=== PATIENT | female | born 1990 | race Caucasian/White ===

== ENCOUNTER 2017-01-11 06:56 | Emergency (ER) | payer MEDICAID ==
[~2017-01-11] VITALS: Ht 162.6 cm; Wt 107.5 kg
[2017-01-11 07:02] VITALS: BP 131/88
[2017-01-11] MEDS ORDERED: ACETAMINOPHEN 325 MG TABLET ONE (07:20)
[2017-01-11] MEDS ORDERED: ONDANSETRON 2MG/ML, 2ML ONE (07:20)
[2017-01-11] MEDS ORDERED: ONDANSETRON 2MG/ML, 2ML IVPush ONE (07:30)
[2017-01-11] MEDS ORDERED: ACETAMINOPHEN 325 MG TABLET PO ONE (07:30)
[2017-01-11] MEDS ORDERED: SODIUM CHLORIDE 0.9% 1,000ML IVBOLUS ONE (07:30)
[2017-01-11] MEDS ORDERED: SODIUM CHLORIDE FLUSH 10ML SYR IVF ONE (07:30)
[2017-01-11 07:33] LABS: HEMOGLOBIN 12.2 g/dL (11.7-16.4)
[2017-01-11 07:46] LABS: ASPARTATE AMINO TRANSFERASE 10 U/L (15-37); BLOOD UREA NITROGEN 6 mg/dL (7-18)
[2017-01-11] MEDS ORDERED: HYDROmorphone 1 MG/ML, 1ML IV ONE (09:30)
[2017-01-11] MEDS ORDERED: HYDROmorphone 1 MG/ML, 1ML ONE (09:40)
== END 2017-01-11 10:26 | disposition home or self-care (01) ==
LOC: ED 07:20
DX: O26.892 Other specified pregnancy related conditions, second trimester (principal); R10.30 Lower abdominal pain, unspecified
CPT/HCPCS: 36415; 76815; 80053; 81001; 84702; 85025; 86901; 87086; 96361; 96374; 96375; 99285; J1170; J2405; J7030

== ENCOUNTER 2017-05-04 07:03 | Emergency (ER) | payer MEDICAID ==
[~2017-05-04] VITALS: Ht 160 cm; Wt 107.1 kg
[2017-05-04] MEDS ORDERED: ONDANSETRON 2MG/ML, 2ML ONE (07:53)
[2017-05-04] MEDS ORDERED: HYDROmorphone 1 MG/ML, 1ML ONE ×2 (07:53→08:23)
[2017-05-04] MEDS ORDERED: ONDANSETRON 2MG/ML, 2ML IVPush ONE (08:00)
[2017-05-04] MEDS ORDERED: SODIUM CHLORIDE FLUSH 10ML SYR IVF ONE (08:00)
[2017-05-04] MEDS: HYDROmorphone 1 MG/ML, 1ML IVPush PRN ×2 (08:02→08:25)
[2017-05-04 08:14] LABS: BLOOD UREA NITROGEN 12 mg/dL (7-18)
[2017-05-04 08:18] LABS: ASPARTATE AMINO TRANSFERASE 22 U/L (15-37)
[2017-05-04] MEDS ORDERED: AZITHROMYCIN 250 MG TABLET ONE (08:59)
[2017-05-04] MEDS ORDERED: CEFTRIAXONE 250 MG ONE (08:59)
[2017-05-04] MEDS ORDERED: AZITHROMYCIN 500 MG TABLET PO ONE (09:00)
[2017-05-04] MEDS ORDERED: CEFTRIAXONE 250 MG IM ONE (09:00)
[2017-05-04] MEDS ORDERED: metroNIDAZOLE 500 MG TABLET PO ONE (09:30)
[2017-05-04] MEDS ORDERED: metroNIDAZOLE 500 MG TABLET ONE (09:56)
[2017-05-04 10:00] VITALS: BP 97/44
== END 2017-05-04 10:03 | disposition home or self-care (01) ==
LOC: ED 07:37
DX: N30.90 Cystitis, unspecified without hematuria (principal); N72 Inflammatory disease of cervix uteri; N76.0 Acute vaginitis; N34.1 Nonspecific urethritis
CPT/HCPCS: 36415; 80053; 81001; 83690; 84703; 85025; 87077; 87086; 87186; 87210; 87491; 87591; 87808; 96372; 96374; 96375; J0696; J1170; J2405

== ENCOUNTER 2017-06-27 15:32 | Emergency (ER) | payer MEDICAID, OTHER ==
[~2017-06-27] VITALS: Ht 162.6 cm; Wt 102.7 kg
[2017-06-27 15:44] VITALS: BP 144/98
[2017-06-27] MEDS ORDERED: DIAZEPAM 5 MG TABLET ONE (16:24)
[2017-06-27] MEDS ORDERED: OXYcodone/APAP 5/325MG TABLET ONE (16:24)
[2017-06-27] MEDS ORDERED: KETOROLAC 30 MG/1 ML ONE (16:25)
[2017-06-27] MEDS ORDERED: KETOROLAC 30 MG/1 ML IM ONE (16:30)
[2017-06-27] MEDS ORDERED: DIAZEPAM 5 MG TABLET PO ONE (16:30)
[2017-06-27] MEDS ORDERED: OXYcodone/APAP 5/325MG TABLET PO ONE (16:30)
== END 2017-06-27 17:19 | disposition home or self-care (01) ==
LOC: ED 17:13
DX: S13.9XXA Sprain of joints and ligaments of unspecified parts of neck, initial encounter (principal); S23.3XXA Sprain of ligaments of thoracic spine, initial encounter; Z88.5 Allergy status to narcotic agent; Z88.0 Allergy status to penicillin; S33.5XXA Sprain of ligaments of lumbar spine, initial encounter; V49.49XA Driver injured in collision with other motor vehicles in traffic accident, initial encounter; Y93.89 Activity, other specified; Y99.8 Other external cause status; Y92.488 Other paved roadways as the place of occurrence of the external cause
CPT/HCPCS: 72050; 72072; 72110; 96372; 99284; J1885

== ENCOUNTER 2017-07-04 11:54 | Emergency (ER) | payer OTHER ==
[~2017-07-04] VITALS: Ht 162.6 cm; Wt 103.4 kg
[2017-07-04 12:54] LABS: PATH.CAST-FLAG NOT PRESENT; SPERM-FLAG NOT PRESENT; SRC-FLAG NOT PRESENT; XTAL-FLAG NOT PRESENT; YLC-FLAG NOT PRESENT
[2017-07-04] MEDS ORDERED: KETOROLAC 30 MG/1 ML ONE (13:50)
[2017-07-04] MEDS ORDERED: HYDROcodone/APAP 5/325 TABLET ONE ×2 (13:50→16:05)
[2017-07-04] MEDS ORDERED: HYDROcodone/APAP 5/325 TABLET PO ONE ×2 (14:00→16:00)
[2017-07-04] MEDS ORDERED: KETOROLAC 30 MG/1 ML IM ONE (14:00)
[2017-07-04 14:55] LABS: HCG UR OBC PASS
[2017-07-04 16:19] VITALS: BP 137/86
== END 2017-07-04 16:23 | disposition home or self-care (01) ==
LOC: ED 14:33
DX: N76.0 Acute vaginitis (principal); B96.89 Other specified bacterial agents as the cause of diseases classified elsewhere; M54.5 Low back pain
CPT/HCPCS: 76830; 81001; 81025; 87086; 87210; 87491; 87591; 87808; 96372; 99285; J1885

== ENCOUNTER 2017-07-21 22:43 | Emergency (ER) | payer OTHER ==
[~2017-07-21] VITALS: Ht 162.6 cm; Wt 103.7 kg
[2017-07-21 23:23] LABS: PATH.CAST-FLAG NOT PRESENT; SPERM-FLAG NOT PRESENT; SRC-FLAG NOT PRESENT; XTAL-FLAG NOT PRESENT; YLC-FLAG NOT PRESENT
[2017-07-21 23:38] LABS: HEMOGLOBIN 14.1 g/dL (11.7-16.4); WHITE BLOOD COUNT 14.1 x10^3/uL (3.4-10)
[2017-07-21 23:47] LABS: ASPARTATE AMINO TRANSFERASE 19 U/L (15-37); BLOOD UREA NITROGEN 16 mg/dL (7-18)
[2017-07-22] MEDS ORDERED: KETOROLAC 30 MG/1 ML ONE (00:23)
[2017-07-22] MEDS ORDERED: KETOROLAC 30 MG/1 ML IVPush ONE (00:30)
[2017-07-22] MEDS ORDERED: SODIUM CHLORIDE FLUSH 10ML SYR IVF ONE (00:30)
[2017-07-22] MEDS ORDERED: SODIUM CHLORIDE 0.9% 1,000ML IVBOLUS ONE (00:30)
[2017-07-22] MEDS ORDERED: OMNIPAQUE 350 MG/ML, 100ML BOTTLE ONE (00:55)
[2017-07-22] MEDS ORDERED: HYDROcodone/APAP 5/325 TABLET PO ONE (02:00)
[2017-07-22] MEDS ORDERED: ONDANSETRON ODT 4 MG PO ONE (02:00)
[2017-07-22] MEDS ORDERED: ONDANSETRON ODT 4 MG ONE (02:00)
[2017-07-22] MEDS ORDERED: HYDROcodone/APAP 5/325 TABLET ONE (02:01)
[2017-07-22 02:27] VITALS: BP 127/84
== END 2017-07-22 02:29 | disposition home or self-care (01) ==
LOC: ED 23:07
DX: N83.209 Unspecified ovarian cyst, unspecified side (principal)
CPT/HCPCS: 36415; 74177; 80053; 81001; 83690; 84703; 85025; 96361; 96374; 99285; J1885; J7030; Q0162; Q9967

== ENCOUNTER 2017-11-14 23:46 | Emergency (ER) | payer OTHER ==
[~2017-11-14] VITALS: Ht 160 cm; Wt 106.1 kg
[2017-11-14 23:47] VITALS: BP 163/105
[2017-11-15] MEDS ORDERED: IBUPROFEN 200 MG TABLET PO ONE (00:30)
[2017-11-15] MEDS ORDERED: IBUPROFEN 200 MG TABLET ONE (00:43)
[2017-11-15] MEDS ORDERED: SODIUM CHLORIDE FLUSH 10ML SYR IVF ONE (02:00)
[2017-11-15] MEDS ORDERED: LORazepam 2 MG/ML, 1ML IVPush ONE (02:00)
== END 2017-11-15 02:07 | disposition home or self-care (01) ==
LOC: ED 23:59
DX: S52.124A Nondisplaced fracture of head of right radius, initial encounter for closed fracture (principal); Z88.0 Allergy status to penicillin; Z88.5 Allergy status to narcotic agent; W19.XXXA Unspecified fall, initial encounter; Y93.89 Activity, other specified; Y92.89 Other specified places as the place of occurrence of the external cause; Y99.9 Unspecified external cause status
CPT/HCPCS: 99284

== ENCOUNTER 2018-01-06 19:23 | Emergency (ER) | payer OTHER ==
[~2018-01-06] VITALS: Ht 162.6 cm; Wt 108.4 kg
[2018-01-06 19:33] VITALS: BP 152/100
== END 2018-01-06 19:39 | disposition home or self-care (01) ==
LOC: ED 19:33
DX: I10 Essential (primary) hypertension (principal); Z48.02 Encounter for removal of sutures; Z88.0 Allergy status to penicillin; Z88.5 Allergy status to narcotic agent
CPT/HCPCS: 99281